=== PATIENT | male | born 1985 | race Caucasian/White ===

== ENCOUNTER 2022-04-22 14:03 | Outpatient (CLI) | payer OTHER, SELFPAY | END 2022-04-22 14:04 | disposition home or self-care (01) | LOC: INJ CL 14:06 | PROVIDERS: Visit Provider Family Medicine | DX: M54.16 Radiculopathy, lumbar region (principal); M51.36 Other intervertebral disc degeneration, lumbar region | CPT/HCPCS: 64483; J1100; Q9966 ==